=== PATIENT | male | born 1940 | race Two or more races ===

== ENCOUNTER → 2025-02-01 | Outpatient (CLI) | payer MEDICARE, MEDICAID, SELFPAY ==
--- NOTE | 2025-02-01 09:00 | XR_ITS ---
Examination: Upper GI series and KUB Esophagram standard Fluoroscopy AP spot fluoroscopic films of the esophagus and stomach Exam date and time: February 01, 2025 10:38 AM INDICATIONS: Coughing up blood 2 years TECHNIQUE AND FINDINGS: Buying Intern AP supine abdomen large amounts of stool throughout the colon Patient swallowed thin barium with 18 spot films of the esophagus stomach duodenum obtained Fluoroscopy 0.33 minutes Primary peristaltic esophageal waves noted Numerous secondary and tertiary esophageal contractions Moderate intermittent gastroesophageal reflux Large sliding esophageal hernia Mucosal folds are thickened in the stomach antral gastritis pattern Mucosal fold thickening and spasm in the duodenal bulb Duodenal sweep unremarkable IMPRESSION: Moderate intermittent gastroesophageal reflux Mucosal fold thickening in the antral region, this may relate to antral gastritis, recommend endoscopy follow-up Active peptic disease duodenum bulb
--- NOTE | 2025-02-01 09:46 | XR_ITS ---
Examination: PA lateral chest 2 views TECHNIQUE: Upright PA lateral chest 2 views Exam date and time: February 01, 2025 1010 hours INDICATIONS: Hemoptysis 2 years. 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
== END | disposition home or self-care (01) ==
LOC: CDIM 09:39
PROVIDERS: PCP Physician Assistant; Referring Provider Physician Assistant; Visit Provider Physician Assistant
DX: K21.9 Gastro-esophageal reflux disease without esophagitis (principal); K30 Functional dyspepsia
CPT/HCPCS: 71046; 74240; A4699